=== PATIENT | male | born 2000 | race Asian ===

== ENCOUNTER 2020-05-13 11:47 | Emergency (ER) | payer BC, OTHER ==
[~2020-05-13] VITALS: Ht 175.3 cm; Wt 74.8 kg
--- NOTE | 2020-05-13 11:50 | NUR ---
19 year old male coming from [facility] reports of diffuse abdominal pain x 1 week. states feeling naseous and constipated. denies any injury or trauma to the site. states he had the same problem last year but the pain went away. was told by [facility] doctor that it is possible gallstones the pt is experiencing. bowel sounds normoactive on all quads. all other system WNL. awaiting MSE. pmhx: denies nka
[2020-05-13 11:55] VITALS: BP 132/76
--- NOTE | 2020-05-13 11:56 | NUR ---
To ED bed 12.
--- NOTE | 2020-05-13 12:00 | NUR ---
Dr. Saez at bedside.
[2020-05-13 12:23] LABS: BASOPHILS % (AUTO) 0.3 % (0.0-2.0); EOSINOPHILS # (AUTO) 0.1 K/uL (0-0.4); EOSINOPHILS % (AUTO) 2.2 % (0.0-4.0); HEMATOCRIT 41.6 % (36-52); HEMOGLOBIN 14.3 g/dL (12.0-18.0); LYMPHOCYTES # (AUTO) 1.9 K/uL (2.0-11.5); LYMPHOCYTES % (AUTO) 31.4 % (20.5-51.1); MEAN CORPUSCULAR HEMOGLOBIN 31 pg (27-31); MEAN CORPUSCULAR HGB CONC 34 g/dL (33-37); MEAN CORPUSCULAR VOLUME 89.1 fL (80-94); MONOCYTES # (AUTO) 0.6 K/uL (0.8-1.0); MONOCYTES % (AUTO) 8.9 % (1.7-9.3); NEUTROPHILS # (AUTO) 3.5 K/uL (1.8-7.7); NEUTROPHILS % (AUTO) 57.2 % (42.2-75.2); PLATELET COUNT (AUTO) 166 K/uL (140-450); RED BLOOD CELL COUNT(AUTO) 4.67 MIL/uL (4.20-6.10); RED CELL DISTRIBUTION WIDTH 12.7 % (11.6-13.7); WHITE BLOOD COUNT (AUTO) 6.2 K/uL (4.5-11.0)
[2020-05-13 12:23] LABS: APPEARANCE,URINE CLEAR (CLEAR); BILIRUBIN,URINE NEGATIVE (NEGATIVE); BLOOD, URINE NEGATIVE (NEGATIVE); COLOR,URINE YELLOW (YELLOW); LEUKOCYTE ESTERASE ,URINE NEGATIVE (NEGATIVE); NITRITE, URINE NEGATIVE (NEGATIVE); UGLUCOSE NEGATIVE (NEGATIVE)
[2020-05-13 12:38] LABS: ALBUMIN 4.5 g/dL (3.4-5.0); ANION GAP 11.7 (8-16); CARBON DIOXIDE 28.1 mmol/L (21-32); POTASSIUM 3.8 mmol/L (3.5-5.1); TOTAL BILIRUBIN 0.8 mg/dL (0.0-1.0)
[2020-05-13 12:46] VITALS: BP 126/80
--- NOTE | 2020-05-13 12:46 | NUR ---
US at bedside.
--- NOTE | 2020-05-13 13:25 | NUR ---
Patient discharged with v/s stable. Written and verbal after care instructions given and explained. Patient alert, oriented and verbalized understanding of instructions. Ambulatory with steady gait. All questions addressed prior to discharge. ID band removed. Patient advised to follow up with PMD. Rx of pepcid, zofran given. Patient educated on indication of medication including possible reaction and side effects. Opportunity to ask questions provided and answered.
== END 2020-05-13 13:25 | disposition home or self-care (01) ==
LOC: MED 11:47
DX: K29.70 Gastritis, unspecified, without bleeding (principal); R03.0 Elevated blood-pressure reading, without diagnosis of hypertension
CPT/HCPCS: 36415; 76705; 80053; 81003; 83690; 85025; 99284; Q0092